=== PATIENT | male | born 1960 | race Caucasian/White ===

== ENCOUNTER 2017-09-22 19:17 | Emergency (ER) | END 2017-09-22 21:50 | disposition home or self-care (01) ==

== ENCOUNTER 2019-05-20 10:43 | Emergency (ER) | payer OTHER ==
[~2019-05-20] VITALS: Ht 162.6 cm; Wt 78.0 kg
[~2019-05-20 10:43] MED LIST: ACET325T33 PO; AMOX1TAB10 PO; BENZ-6 PO
[2019-05-20 10:46] VITALS: Ht 162.6 cm; Wt 78.0 kg
[2019-05-20 13:28] VITALS: BP 108/72; PULSE 95; RESP 18
== END 2019-05-20 13:29 | disposition home or self-care (01) ==
LOC: FTE 10:43
DX: B34.9 Viral infection, unspecified (principal)
CPT/HCPCS: 36415; 71045; 80048; 81001; 85025; Z7502